=== PATIENT | female | born 2005 | race Caucasian/White ===

== ENCOUNTER 2024-10-05 19:08 | Emergency (ER) | payer OTHER, SELFPAY ==
[2024-10-05 19:29] VITALS: BP 125/71; PULSE 66; RESP 16; TEMP 36.6; O2SAT 100
--- NOTE | 2024-10-05 20:05 | PC.NURSE ---
pt unable to do visual acuity even with sunglasses. Pt unable to keep eye open long enough.
--- NOTE | 2024-10-05 20:15 | PC.NURSE ---
eye kit at the lamp
--- NOTE | 2024-10-05 21:24 | ED.EYEPROB ---
HPI - Eye Problem General Chief complaint: Eye Problems Stated complaint: tanned today, eyes burning, unable to open Time Seen by Provider: 10/05/24 21:13 Source: patient and other Mode of arrival: ambulatory Limitations: no limitations History of Present Illness HPI Narrative: Patient used a tanning bed at 11am. She didn't wear eye protection but kept her eyes closed. She started developing eye pain/burning at about 4pm. She took her contact lenses out. No contraindications to NSAID use. No fevers but has felt chilled and shaking. Difficulty opening her eyes. Eyes watery. Related Data Allergies Allergy/AdvReac Type Severity Reaction Status Date / Time No Known Allergies Allergy Verified 10/05/24 19:09 [facility] Past Medical History Medical History Wears contact lenses Exam Narrative: GENERAL: well-nourished, in acute distress. HEAD: Normocephalic, atraumatic. EYES: Non icteric. Bilateral chemosis, injection. Lacrimation. Photophobia. Surrounding eyelids erythematous and edematous. Patient experiences relief of symptoms after instilling topical anesthetic. Superficial punctate keratitis on fluorescein exam though mild given degree of symptoms. ENT: Nares w/o epistaxis. NECK: Supple. CHEST: Speaking in full sentences. No respiratory distress. HEART: Regular rate and rhythm. . ABDOMEN: Soft, nondistended. EXTREMITIES: Normal range of motion. SKIN: Warm, dry NEURO: No focal deficits. Alert and oriented x3. PSYCH: Normal mood and affect. Course Vital Signs Vital signs: Vital Signs Temperature 97.9 F 10/05/24 19:29 Pulse Rate 66 10/05/24 19:29 Respiratory Rate 16 10/05/24 19:29 Blood Pressure 125/71 10/05/24 19:29 Pulse Oximetry 100 10/05/24 19:29 Oxygen Delivery Room Air 10/05/24 19:29 Temperature 97.9 F 10/05/24 19:29 Pulse Rate 89 10/05/24 22:56 Respiratory Rate 16 10/05/24 22:56 Blood Pressure 137/76 10/05/24 22:56 Pulse Oximetry 98 10/05/24 22:56 Oxygen Delivery Room Air 10/05/24 19:29 MDM - Eye Problem MDM Narrative Medical decision making narrative: Patient presents with bilateral eye pain and burning approximately 5 hours after using a tanning bed without using eye protection. In the emergency department they are afebrile with vital signs within normal limits. RN unable to perform visual acuity assessment due to patient's degree of pain initially. Patient has UV keratitis based on UV exposure and subsequent inflammatory response, confirmed on exam and patient with anesthetic response upon instillation of tetracaine drops. We discussed the expected time course/natural progression that symptoms should resolve as new epithelial cells grow on cornea. Urged to wear eye protection in the future. Given analgesic medication in the ED and provided Rx for some as well. Encouraged eye rest. Prescribed non medicatted saline gtts and educated she could put these in the fridge for cooling relief. Discouraged Visine use. Prescribed erythromycin opthalmic with initail application in the ED. Encouraged follow up with PCP or sausage canner/manufacturing quality engineer in 1-2 days Differential Diagnosis Differential diagnosis: Likely corneal abrasion, conjunctivitis, acute iritis, periorbital cellulitis, subconjunctival hemorrhage, corneal ulcer and other (UV keratitis) Discharge Plan Discharge Clinical Impression: UV keratitis Patient Disposition: Home, Self-Care Condition: Stable Instructions: Antibiotic Form, Narcotic Safety (ED), Keratitis (ED) Additional Instructions: Acetaminophen/Tylenol (maximum 4000 mg per day) is safe to take with NSAIDs (ibuprofen/Motrin) for pain relief. For breakthrough pain you can use the narcotic medication prescribed (disregard the multiple listings below, initially it would not e-prescribe due to registration issue). Rest your eyes; avoid re-exposure. In the future use the eye protection and consider using eye protection currently (sunglasses). Saline nonmedicated eyedrops can be used. Placing them in the refrigerator can help with cooling effect. Follow up with your primary care provider in 1-2 days to ensure improvement of symptoms. Alternatively, if you can not get in to be seen, follow up with an sausage canner or opthalmologist. Patient Language: Somali Prescriptions: New ibuprofen 600 mg tablet 600 mg PO TID PRN (Reason: pain) Qty: 30 0RF acetaminophen 500 mg capsule 1,000 mg PO Q6H PRN (Reason: pain) Qty: 30 0RF oxycodone 5 mg capsule 5 mg PO Q8H PRN (Reason: pain) Qty: 10 0RF oxycodone 5 mg capsule 5 mg PO Q8H PRN (Reason: pain) Qty: 10 0RF hydrocodone-acetaminophen 5-325 mg tablet 1 tablet PO Q8H PRN (Reason: pain) Qty: 10 0RF oxycodone 5 mg capsule 5 mg PO Q8H PRN (Reason: pain) Qty: 10 0RF (DME) Saline Solution Solution See Rx Instructions .Route Qty: 355 0RF Rx Instructions: As directed erythromycin 5 mg/gram (0.5 %) ointment 0.5 inch EACH EYE BID Qty: 3.5 0RF cyclopentolate 0.5 % drops 1 drp EACH EYE ONCE 5 Days Qty: 15 0RF Rx Instructions: compress lacrimal sac for 1-2 minutes after instillation Follow-up/Referrals: Shruthi Cornelius [Outside] Shruthi Orr [Outside] PHYSICIAN NOT ON STAFF,NONSTAFF [Non-Staff] - Stand Alone Forms: Work/School Release IP Time of Disposition: 22:28
[2024-10-05] MEDS: FLUORESCEIN SOD 1 MG/STRIP (21:49)
[2024-10-05] MEDS: HYDROcodone/acetaminophen (*CRX) 5-325 MG TABLET 1 TAB PO (21:49)
[2024-10-05] MEDS: DACRIOSE EYE IRRIGATION 118 ML BOTTLE (21:50)
[2024-10-05] MEDS: TETRACAINE HCL 0.5% OPHTH SOLN 4 ML BTL 1 DROP (21:50)
[2024-10-05] MEDS: KETOROLAC 30 MG/ML VIAL (*BKC) 15 MG IM (22:41)
[2024-10-05] MEDS: ERYTHROMYCIN OPHTH OINTMENT 1 GM TUBE 1 APPLIC EACH EYE (22:43)
[2024-10-05 22:56] VITALS: BP 137/76; PULSE 89; RESP 16; O2SAT 98
== END 2024-10-05 22:57 | disposition home or self-care (01) ==
PROVIDERS: Emergency Provider Student in an Organized Health Care Education/Training Program
DX: H16.133 Photokeratitis, bilateral (principal)
CPT/HCPCS: 96372; 99283; A9270; J1885